=== PATIENT | female | born 1985 | race Caucasian/White ===

== ENCOUNTER 2019-03-01 20:20 | Emergency (ER) | payer OTHER | END 2019-03-01 21:27 | disposition home or self-care (01) | LOC: JERFT 20:20 ==

== ENCOUNTER 2021-03-04 03:48 | Emergency (ER) | payer OTHER ==
[2021-03-04 04:01] VITALS: BP 111/72; PULSE 73; TEMP 98.9; BMI 33.7
[2021-03-04] MEDS ORDERED: LIDOCAINE 5% TOPICAL PATCH TP ONE (05:14)
[2021-03-04] MEDS ORDERED: IBUPROFEN 600 MG TABLET (FP) PO ONE ×2 (05:14→05:17)
[2021-03-04] MEDS ORDERED: LIDOCAINE 5% TOPICAL PATCH ONE (05:17)
[2021-03-04 06:41] LABS: BASO % 0.8 % (0-2.0); EOS % 6.2 % (0-4.5); HEMOGLOBIN 13.3 GM/dL (10.7-15.3); LYMPH % 36.3 % (8-40); MCH 29.4 pg (25.7-33.7); MEAN CELL VOLUME 86.5 fl (80-96); MEAN PLT VOLUME 8.3 fl (7.5-11.1); MONO % 11.7 % (3.8-10.2); PLATELET COUNT 214 K/MM3 (134-434); RBC 4.51 M/mm3 (3.60-5.2); RDW 12.7 % (11.6-15.6); WHITE BLOOD COUNT 4.6 K/mm3 (4.0-10.0)
[2021-03-04 06:51] LABS: ALBUMIN 4.3 g/dl (3.4-5.0); BLOOD UREA NITROGEN 12.6 mg/dL (7-18)
[2021-03-04 06:54] LABS: CREATININE 0.6 mg/dL (0.55-1.3)
[2021-03-04 06:56] LABS: BILIRUBIN,TOTAL 0.2 mg/dL (0.2-1); TOT PROT 7.7 g/dl (6.4-8.2)
[2021-03-04] MEDS ORDERED: LIDOCAINE PATCH REMOVAL MC SCH (22:00)
== END 2021-03-04 07:01 | disposition home or self-care (01) ==
LOC: JER 03:48
DX: M94.0 Chondrocostal junction syndrome [Tietze] (principal)
CPT/HCPCS: 36415; 71046-TC-FY; 80053; 85025; 93005; 93010; 99284-25

== ENCOUNTER 2022-04-27 10:50 | Emergency (ER) | payer OTHER ==
[2022-04-27 10:58] VITALS: BP 107/64; PULSE 69; RESP 18; TEMP 97.7; BMI 29.2
== END 2022-04-27 11:39 | disposition home or self-care (01) ==
LOC: JER 10:50
DX: G51.0 Bell's palsy (principal)
CPT/HCPCS: 99283-25